=== PATIENT | male | born 1965 ===

== ENCOUNTER 2018-12-13 15:08 | Emergency (ER) | payer OTHER ==
--- NOTE | 2018-12-13 16:01 | C.PDOC ---
History Of Present Illness 54 y/o male presents to the ED complaining of decreased vision to the bilateral eyes, progressively worsening for weeks. States he was told he had a cataract in the right eye some time ago and more recently, he had an injury at work where a piece of metal went into his left eye a few months ago. Since then, vision has progressively worsened with blurry vision and loss of shapes/colors. 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 Patient states he followed up with ophthalmology once, the foreign body was taken out, and he never went back. He reports developing pain around the orbit of his left eye with some swelling over the weekend, prompting him to come in today. Otherwise he has no fever, chills, headache, nausea, or vomiting. Patient was unable to visualize the eye chart in the ED and therefore unable to complete visual acuity. Time Seen by Provider: 12/13/18 15:48 Chief Complaint (Nursing): Eye Problem History Per: Patient History/Exam Limitations: no limitations Onset/Duration Of Symptoms: Days Current Symptoms Are (Timing): Still Present Associated Symptoms: Pain, Decreased Vision Past Medical History Reviewed: Historical Data, Nursing Documentation, Vital Signs Vital Signs: Last Vital Signs Temp 97.6 F 12/13/18 15:22 Pulse 70 12/13/18 15:22 Resp 18 12/13/18 15:22 BP 111/69 12/13/18 15:22 Pulse Ox 99 12/13/18 15:22 - Medical History PMH: No Chronic Diseases Surgical History: No Surg Hx Family History: States: Unknown Family Hx - Social History Hx Tobacco Use: Yes Hx Alcohol Use: Yes Hx Substance Use: No - Immunization History Hx Tetanus Toxoid Vaccination: No Hx Influenza Vaccination: No Hx Pneumococcal Vaccination: No Review Of Systems Except As Marked, All Systems Reviewed And Found Negative. Constitutional: Negative for: Fever, Chills Eyes: Positive for: Pain, Vision Change (decreased bilaterally), Other (No new trauma/injury). Negative for: Redness ENT: Negative for: Nose Congestion Respiratory: Negative for: Cough Gastrointestinal: Negative for: Nausea, Vomiting Neurological: Negative for: Headache, Dizziness Physical Exam - Physical Exam Appears: Non-toxic, No Acute Distress, Other (Awake and alert) Skin: Warm, Dry, No Rash Head: Atraumatic, Normacephalic Eye(s): bilateral: Normal Inspection, EOMI, Other (Poor vision bilaterally) Oral Mucosa: Moist Neck: Normal ROM Chest: Symmetrical Extremity: Bilateral: Atraumatic, Normal ROM Neurological/Psych: Oriented x3, Normal Speech, Normal Cranial Nerves ED Course And Treatment O2 Sat by Pulse Oximetry: 99 (RA) Pulse Ox Interpretation: Normal Medical Decision Making Medical Decision Making: Plan: Advised patient to follow up with ophthalmology without fail. Patient verbalizes understanding of plan. Given referral for Dr. Mitchell across the street. Disposition Counseled Patient/Family Regarding: Diagnosis, Need For Followup - Disposition Referrals: [facility] [Outside] Freddy Mitchell [Staff Provider] - Disposition: HOME/ ROUTINE Disposition Time: 15:59 Condition: STABLE Instructions: Cataracts (DC) Forms: [facility] (Georgian), Gen Discharge Inst Georgian - POA Present On Arrival: None - Clinical Impression Clinical Impression: Cataracts, both eyes - Scribe Statement The provider has reviewed the documentation as recorded by the Jodyibmason Alford Provider Attestation: All medical record entries made by the Jodyibmason were at my direction and personally dictated by me. I have reviewed the chart and agree that the record accurately reflects my personal performance of the history, physical exam, medical decision making, and the department course for this patient. I have also personally directed, reviewed, and agree with the discharge instructions and disposition.
[2018-12-13 16:03] VITALS: RESP 18; TEMP 97.6; BMI 18.6
[2018-12-13 16:08] VITALS: BP 110/72; PULSE 78
[2018-12-13 16:21] VITALS: O2SAT 99
== END 2018-12-13 16:05 | disposition home or self-care (01) ==
LOC: C.ER 15:08
DX: H26.9 Unspecified cataract (principal)

== ENCOUNTER 2019-01-18 09:41 | Outpatient (CLI) | payer OTHER | END 2019-01-18 09:42 | disposition home or self-care (01) | LOC: C.PAT 09:41 | DX: H11.051 Peripheral pterygium, progressive, right eye (principal) ==

== ENCOUNTER 2019-01-25 08:21 | Day surgery (SDC) | payer OTHER ==
[~2019-01-25 08:21] MED LIST: Gentamicin 80 mg/2mL Inj. ONE; Hyaluronidase Human, Recombi 150 U/ML VIAL ONE; Lactated Ringer's 500 ML IV ONE; Lidocaine 2% MPF (5 ml) Inj ONE; MethylPREDNISolone 40 mg Vial ONE; Phenylephrine 2.5% Opht Soln OD SCH; Tetracaine 0.5% Ophth (OR ONLY) ONE; Tobramycin/Dexamethasone OPHT OINT ONE
[2019-01-25] MEDS ORDERED: Phenylephrine 2.5% Opht Soln OD SCH (09:15)
[2019-01-25] MEDS ORDERED: Lactated Ringer's 500 ML IV ONE (09:31)
[2019-01-25] MEDS ORDERED: Lidocaine/Epinephrine 1% 1:100000 10 ML IJ ONE (10:29)
[2019-01-25] MEDS ORDERED: Midazolam 2 MG/2 ML VIAL ONE (10:33)
[2019-01-25 11:14] VITALS: BP 131/71; PULSE 66; RESP 18; TEMP 98; O2SAT 96
--- NOTE | 2019-01-25 22:59 | OP ---
PROCEDURE DATE: 01/25/2019 PREOPERATIVE DIAGNOSIS: Progressive pterygium, right eye. POSTOPERATIVE DIAGNOSIS: Progressive pterygium, right eye. PROCEDURE: Pterygium excision with autograft, right eye. ATTENDING: Freddy Mitchell MD TYPE OF ANESTHESIA: Retrobulbar block. DESCRIPTION OF PROCEDURE: The patient was brought to the operating room and properly identified. Anesthesia staff gave IV sedation. The patient was prepped and draped in usual sterile fashion, sitting superiorly. Pterygium was injected with lidocaine with epinephrine. Once this was complete, it was removed with a 0.12 forceps and Boris scissors. After it was removed, a russ jules was used to smooth out the corneal portion. Hemostasis was maintained with cautery. Mitomycin C 0.02% was placed on the bare sclera for one and half minutes and then washed with three large syringes of BSS. Once that was complete, a superior conjunctival graft was then created and glued into place using Tisseel glue. Subconjunctival antibiotic and steroids were then given. Eye was covered with a soft patch and shield. The patient returned to recovery room in stable condition. Freddy Mitchell MD
== END 2019-01-25 11:44 | disposition home or self-care (01) ==
LOC: C.SDS 08:21
PROVIDERS: ATTEND Ophthalmology
DX: H11.051 Peripheral pterygium, progressive, right eye (principal)
CPT/HCPCS: 65426; 88304; J1580; J2250; J2920; J3010; J3470; J7120

== ENCOUNTER 2019-02-22 08:12 | Day surgery (SDC) | payer OTHER ==
[~2019-02-22 08:12] MED LIST changes: +Carbachol 0.01% IO ONE; +Chondroitin/Hyaluronate Opth Syringe KIT (0.55 ml-0.5 ml) IO ONE; -Gentamicin 80 mg/2mL Inj. ONE; +Lactated Ringer's 1,000 ML IV ONE; -Lactated Ringer's 500 ML IV ONE; -MethylPREDNISolone 40 mg Vial ONE; +Povidone Iodine Ophthalmic 5% Soln ONE; -Tetracaine 0.5% Ophth (OR ONLY) ONE; -Tobramycin/Dexamethasone OPHT OINT ONE; +Tropicamide 1% Opht SOLUTION OD SCH
[2019-02-22] MEDS ORDERED: Lactated Ringer's 500 ML IV ONE (09:00)
[2019-02-22 09:06] VITALS: BMI 18.3
[2019-02-22] MEDS ORDERED: Propofol 10 mg/ml Inj (20 ML) ONE (09:51)
[2019-02-22] MEDS: Tobramycin/Dexamethasone OPHT OINT ONE ×2 (10:11→10:20)
[2019-02-22 11:08] VITALS: RESP 20
[2019-02-22 11:23] VITALS: BP 113/65; PULSE 84; TEMP 97.7; O2SAT 98
--- NOTE | 2019-02-22 19:52 | OP ---
PROCEDURE DATE: 02/22/2019 PREOPERATIVE DIAGNOSIS: Hypermature Morgagnian cataract, right eye. POSTOPERATIVE DIAGNOSIS: Hypermature Morgagnian cataract, right eye. PROCEDURE: Complex cataract surgery using Vision Blue for right eye. SURGEON: Freddy Mitchell MD TYPE OF ANESTHESIA: Retrobulbar block. COMPLICATIONS: None. DESCRIPTION OF PROCEDURE: .The patient was brought to the operating room and properly identified. Anesthesia staff administered intravenous sedation and retrobulbar block was given to the surgical eye. The patient was then prepped and draped in the usual sterile fashion. Attention was turned to the surgical eye. A lid speculum was placed into interpalpebral fissure. Sitting temporally, two paracentesis incisions were made. The anterior chamber was filled with viscoelastic and a triplanar clear corneal incision was made. Using a cystitome, anterior capsular leaflet was created. Utrata forceps were used to create a continuous curvilinear capsulorrhexis. Balanced salt solution on a cannula was used to hydrodissect and hydrodelineate the lens. The lens was then phacoemulsified with no complications. Automated irrigation and aspiration was used to remove the cortex. Viscoelastic was used to deepen the anterior chamber. The lens was placed in the capsular bag. Automated irrigation and aspiration was used to remove the viscoelastic. The anterior chamber was filled with Miochol. The wounds were hydrated with balanced salt solution. There was noted to be no leak at the end of the case and the lens was well positioned. The lid speculum was removed. The eye was given antibiotics and steroids and covered with a patch and shield. The patient was returned to the recovery room in stable condition. Due to the density and complexity of the cataract, Vision Blue was used to highlight the anterior capsule. Freddy Mitchell MD
== END 2019-02-22 11:21 | disposition home or self-care (01) ==
LOC: C.SDS 08:12
PROVIDERS: ATTEND Ophthalmology
DX: H25.21 Age-related cataract, morgagnian type, right eye (principal); F17.200 Nicotine dependence, unspecified, uncomplicated
CPT/HCPCS: 66982; J2704; J3470; J7120; V2632